=== PATIENT | female | born 1965 | race Caucasian/White ===

== ENCOUNTER 2018-01-11 20:51 | Emergency (ER) | payer MEDICAID ==
[2018-01-11] MEDS ORDERED: LABETALOL HCL 20MG INJ IV (21:30)
[2018-01-11 21:37] LABS: ADD MAN DIFF? NO
[2018-01-11 21:40] LABS: WHITE BLOOD COUNT 6.2 10^3/ul (4.8-10.8)
[2018-01-11 21:40] LABS: BASOPHILS % 0.3 % (0.0-2.0); EOSINOPHILS % 0.2 % (0.0-7.0); HEMATOCRIT 37.1 % (37.0-47.0); HEMOGLOBIN 11.8 g/dl (12.0-16.0); LYMPHOCYTES # 1.1 10^3/ul (0.8-2.9); LYMPHOCYTES % 16.9 % (15.0-51.0); MEAN CORPUSCULAR HEMOGLOBIN 23.2 pg (29.0-33.0); MEAN CORPUSCULAR HGB CONC 31.8 g/dl (32.0-37.0); MEAN PLATELET VOLUME 10.1 fl (7.4-10.4); MONOCYTE # 0.4 10^3/ul (0.3-0.9); NEUTROPHIL # 4.7 10^3/ul (1.6-7.5); NEUTROPHILS % 76.4 % (39.0-77.0); PLATELET COUNT 240 10^3/UL (140-415); RED BLOOD COUNT 5.08 10^6/ul (4.20-5.40); RED CELL DISTRIBUTION WIDTH 18.3 % (11.5-14.5)
[2018-01-11] MEDS: SOD CHLORIDE 0.9% 500 ML IV (21:49)
[2018-01-11] MEDS: LABETALOL HCL 20MG INJ IV (21:49)
[2018-01-11] MEDS: METOCLOPRAMIDE 10 MG INJ IV (22:09)
[2018-01-11 22:12] LABS: ANION GAP 17 (8-16); BLOOD UREA NITROGEN 12 mg/dl (7-20); CALCIUM 9.3 mg/dl (8.4-10.2); CARBON DIOXIDE 26 mmol/L (21-31); CHLORIDE 98 mmol/L (97-110); CREATININE 0.53 mg/dl (0.44-1.00); GLUCOSE 359 mg/dl (70-220); POTASSIUM 3.9 mmol/L (3.5-5.1); SODIUM 137 mmol/L (135-144)
[2018-01-11] MEDS: DIPHENHYDRAMINE 50 MG INJ IV (22:12)
[2018-01-11 22:20] LABS: B-TYPE NATRIURETIC PEPTIDE 64 PG/ML (0-125)
[2018-01-11 22:33] LABS: TROPONIN-I < 0.012 ng/ml (0.00-0.12)
[2018-01-11] MEDS: NICARDipine HCL 30 MG CAPSULE PO (22:49)
[2018-01-11] MEDS: AMLODIPINE 10 MG TAB PO (23:07)
[2018-01-11 23:12] LABS: URINE BLOOD (Dip) POC 3+ (NEGATIVE); URINE KETONES (Dip) POC Negative (NEGATIVE); URINE LEUKOCYTE EST (Dip) POC Negative (NEGATIVE); URINE NITRITE (Dip) POC Negative (NEGATIVE); URINE TOTAL PROTEIN POC 2+ (NEGATIVE)
== END 2018-01-12 02:17 | disposition home or self-care (01) ==
LOC: E/R 01-12 02:17
DX: E11.65 Type 2 diabetes mellitus with hyperglycemia (principal); I16.9 Hypertensive crisis, unspecified; Z79.4 Long term (current) use of insulin; Z79.82 Long term (current) use of aspirin
CPT/HCPCS: 36415; 70450; 80048; 81003; 83880; 84484; 85025; 93005; 96374; 96375; 99291-25

== ENCOUNTER 2018-07-25 22:24 | Inpatient (IN) | payer MEDICAID ==
[2018-07-25 23:05] LABS: ADD MAN DIFF? NO
[2018-07-25] MEDS: SODIUM CHLORIDE 0.9% 1L BAG IV* (23:12)
[2018-07-25 23:13] LABS: WHITE BLOOD COUNT 16.3 10^3/ul (4.8-10.8)
[2018-07-25 23:13] LABS: ABNORMAL IP MESSAGE 1; BASOPHILS % 0.1 % (0.0-2.0); HEMATOCRIT 36.5 % (37.0-47.0); HEMOGLOBIN 11.9 g/dl (12.0-16.0); LYMPHOCYTES # 1.1 10^3/ul (0.8-2.9); LYMPHOCYTES % 6.6 % (15.0-51.0); MEAN CORPUSCULAR HGB CONC 32.6 g/dl (32.0-37.0); MEAN CORPUSCULAR VOLUME 79.9 fl (82.0-101.0); MEAN PLATELET VOLUME 10.1 fl (7.4-10.4); MONOCYTE # 1.8 10^3/ul (0.3-0.9); MONOCYTES % 10.8 % (0.0-11.0); NEUTROPHIL # 13.3 10^3/ul (1.6-7.5); NEUTROPHILS % 81.6 % (39.0-77.0); PLATELET COUNT 246 10^3/UL (140-415); RED BLOOD COUNT 4.57 10^6/ul (4.20-5.40)
[2018-07-25] MEDS: CEFEPIME 2GM/50 ML (PMX) 50 ML IVPB (23:14)
[2018-07-25] MEDS: ONDANSETRON 4 MG INJ IV (23:14)
[2018-07-25 23:16] LABS: POSITIVE DIFF @See below
[2018-07-25 23:17] LABS: ADD UMIC YES; UR ASCORBIC ACID NEGATIVE (NEGATIVE); UR BILIRUBIN (Dip) NEGATIVE (NEGATIVE); UR BLOOD (Dip) 2+ mg/dL (NEGATIVE); UR CLARITY SLIGHTLY CLOUDY (CLEAR); UR COLOR YELLOW (YELLOW); UR GLUCOSE (Dip) 3+ mg/dL (NEGATIVE); UR KETONES (Dip) NEGATIVE (NEGATIVE); UR LEUKOCYTE ESTERASE (Dip) 1+ Leu/ul (NEGATIVE); UR NITRITE (Dip) NEGATIVE (NEGATIVE); UR RBC 47 /HPF (0-5); UR SPECIFIC GRAVITY (Dip) 1.025 (1.003-1.030); UR SQUAMOUS EPITHELIAL CELL FEW /HPF (FEW); UR TOTAL PROTEIN (Dip) 2+ mg/dl (NEGATIVE); UR UROBILINOGEN (Dip) NEGATIVE (NEGATIVE); UR WBC 47 /HPF (0-5)
[2018-07-25] MEDS: DIPHENHYDRAMINE 50 MG INJ IV (23:25)
[2018-07-25] MEDS: METOCLOPRAMIDE 10 MG INJ IV (23:25)
[2018-07-25] MEDS: morphine 4 MG/ML VIAL IV (23:25)
[2018-07-25 23:29] LABS: ALANINE AMINOTRANSFERASE 13 IU/L (13-69); ALBUMIN 4.2 g/dl (3.3-4.9); ALBUMIN/GLOBULIN RATIO 0.85; ALKALINE PHOSPHATASE 124 IU/L (42-121); ANION GAP 13 (8-16); ASPARTATE AMINO TRANSFERASE 22 IU/L (15-46); BILIRUBIN,INDIRECT 0.4 mg/dl (0-1.1); BILIRUBIN,TOTAL 0.4 mg/dl (0.2-1.3); BLOOD UREA NITROGEN 10 mg/dl (7-20); CALCIUM 9.5 mg/dl (8.4-10.2); CARBON DIOXIDE 27 mmol/L (21-31); CHLORIDE 98 mmol/L (97-110); CREATININE 0.54 mg/dl (0.44-1.00); GLUCOSE 357 mg/dl (70-220); POTASSIUM 3.9 mmol/L (3.5-5.1); SODIUM 134 mmol/L (135-144); TOTAL PROTEIN 9.1 g/dl (6.1-8.1)
[2018-07-25 23:32] LABS: INR 1.16; PT RATIO 1.2
[2018-07-25 23:33] LABS: LACTIC ACID 2.5 mmol/L (0.5-2.0)
[2018-07-25 23:33] LABS: PARTIAL THROMBOPLASTIN TIME 33.3 Sec (23.0-35.0)
[2018-07-25 23:40] LABS: TROPONIN-I < 0.012 ng/ml (0.000-0.120)
[2018-07-26] MEDS: ACETAMINOPHEN 325 MG TAB PO (00:05)
[2018-07-26] MEDS: KETOROLAC 30 MG INJ IV (00:53)
[2018-07-26] MEDS ORDERED: GLUCOSE GEL 15 GRAM TUBE PO ×2 (01:15)
[2018-07-26] MEDS ORDERED: DEXTROSE 50% 50 ML SYRINGE IV ×2 (01:15)
[2018-07-26] MEDS ORDERED: GLUCOSE GEL 15 GRAM TUBE BUCCAL (01:15)
[2018-07-26] MEDS ORDERED: GLUCAGON 1 MG INJ IM (01:15)
[2018-07-26] MEDS: INSULIN REGULAR, HUMAN 100 UNIT/1 ML 3ML VIAL IV (01:22)
[2018-07-26 01:59] LABS: LACTIC ACID 0.7 mmol/L (0.5-2.0)
[2018-07-26] MEDS: INSULIN ASPART [NOVOLOG] 3 ML PEN SC ×7 (02:01→20:47)
[2018-07-26] MEDS: ACCU-CHEK XX (02:01)
[2018-07-26 04:06] LABS: ADD MAN DIFF? NO
[2018-07-26 04:09] LABS: ABNORMAL IP MESSAGE 1; BASOPHILS % 0.2 % (0.0-2.0); EOSINOPHILS % 0.1 % (0.0-7.0); HEMATOCRIT 31.1 % (37.0-47.0); HEMOGLOBIN 9.8 g/dl (12.0-16.0); LYMPHOCYTES % 13.2 % (15.0-51.0); MEAN CORPUSCULAR HEMOGLOBIN 25.5 pg (29.0-33.0); MEAN CORPUSCULAR HGB CONC 31.5 g/dl (32.0-37.0); MEAN PLATELET VOLUME 10.4 fl (7.4-10.4); MONOCYTE # 1.7 10^3/ul (0.3-0.9); NEUTROPHIL # 11.3 10^3/ul (1.6-7.5); NEUTROPHILS % 74.9 % (39.0-77.0); PLATELET COUNT 211 10^3/UL (140-415); RED BLOOD COUNT 3.84 10^6/ul (4.20-5.40); RED CELL DISTRIBUTION WIDTH 14.1 % (11.5-14.5)
[2018-07-26 04:14] LABS: POSITIVE DIFF @See below
[2018-07-26 04:20] LABS: HEMOGLOBIN A1C 10.8 % (0-5.9)
[2018-07-26 04:27] LABS: LACTIC ACID 0.8 mmol/L (0.5-2.0)
[2018-07-26 04:27] LABS: ALANINE AMINOTRANSFERASE 13 IU/L (13-69); ALBUMIN 3.2 g/dl (3.3-4.9); ALBUMIN/GLOBULIN RATIO 0.84; ALKALINE PHOSPHATASE 90 IU/L (42-121); ANION GAP 10 (8-16); ASPARTATE AMINO TRANSFERASE 18 IU/L (15-46); BILIRUBIN,INDIRECT 0.4 mg/dl (0-1.1); BILIRUBIN,TOTAL 0.4 mg/dl (0.2-1.3); BLOOD UREA NITROGEN 10 mg/dl (7-20); CARBON DIOXIDE 24 mmol/L (21-31); CHLORIDE 106 mmol/L (97-110); CREATININE 0.49 mg/dl (0.44-1.00); GLUCOSE 288 mg/dl (70-220); MAGNESIUM 1.5 mg/dl (1.7-2.5); POTASSIUM 3.9 mmol/L (3.5-5.1); SODIUM 136 mmol/L (135-144)
[2018-07-26] MEDS: CEFEPIME 1GM/50 ML (PMX) 50 ML IVPB ×2 (08:58→20:40)
[2018-07-26] MEDS: BACLOFEN 10 MG TAB PO ×2 (08:59→20:42)
[2018-07-26] MEDS: ASPIRIN 81 MG TAB PO (08:59)
[2018-07-26] MEDS: MAGNESIUM OXIDE 400 MG TAB PO (08:59)
[2018-07-26] MEDS: INSULIN GLARGINE [LANTus] (100 UNITS/ML) SYG SC ×2 (09:11→20:48)
[2018-07-26] MEDS: ACET/BUTAL/CAFF TAB PO ×2 (17:48→22:19)
[2018-07-26] MEDS: ATORVASTATIN 20 MG TAB PO (20:42)
[2018-07-27] MEDS: ACCU-CHEK XX (02:18)
[2018-07-27 05:45] LABS: ADD MAN DIFF? NO
[2018-07-27 05:49] LABS: WHITE BLOOD COUNT 10.1 10^3/ul (4.8-10.8)
[2018-07-27 05:49] LABS: BASOPHILS % 0.3 % (0.0-2.0); EOSINOPHILS % 0.3 % (0.0-7.0); HEMATOCRIT 32.6 % (37.0-47.0); HEMOGLOBIN 10.4 g/dl (12.0-16.0); LYMPHOCYTES # 2.1 10^3/ul (0.8-2.9); LYMPHOCYTES % 20.4 % (15.0-51.0); MEAN CORPUSCULAR HEMOGLOBIN 25.8 pg (29.0-33.0); MEAN CORPUSCULAR HGB CONC 31.9 g/dl (32.0-37.0); MEAN CORPUSCULAR VOLUME 80.9 fl (82.0-101.0); MEAN PLATELET VOLUME 10.5 fl (7.4-10.4); MONOCYTE # 1.2 10^3/ul (0.3-0.9); MONOCYTES % 11.9 % (0.0-11.0); NEUTROPHIL # 6.7 10^3/ul (1.6-7.5); NEUTROPHILS % 66.8 % (39.0-77.0); PLATELET COUNT 212 10^3/UL (140-415); RED BLOOD COUNT 4.03 10^6/ul (4.20-5.40); RED CELL DISTRIBUTION WIDTH 14.2 % (11.5-14.5)
[2018-07-27 06:16] LABS: IRON 21 ug/dl (35-150)
[2018-07-27 06:25] LABS: % IRON SATURATION 8 % SAT (22-52); TOTAL IRON BINDING CAPACITY 280 ug/dl (241-421)
[2018-07-27 06:26] LABS: ALANINE AMINOTRANSFERASE 17 IU/L (13-69); ALBUMIN/GLOBULIN RATIO 0.73; ALKALINE PHOSPHATASE 97 IU/L (42-121); ANION GAP 12 (8-16); ASPARTATE AMINO TRANSFERASE 20 IU/L (15-46); BILIRUBIN,INDIRECT 0.4 mg/dl (0-1.1); BILIRUBIN,TOTAL 0.4 mg/dl (0.2-1.3); BLOOD UREA NITROGEN 8 mg/dl (7-20); CALCIUM 8.9 mg/dl (8.4-10.2); CARBON DIOXIDE 28 mmol/L (21-31); CHLORIDE 103 mmol/L (97-110); CREATININE 0.53 mg/dl (0.44-1.00); GLUCOSE 194 mg/dl (70-220); POTASSIUM 3.8 mmol/L (3.5-5.1); SODIUM 139 mmol/L (135-144); TOTAL PROTEIN 7.1 g/dl (6.1-8.1)
[2018-07-27 07:15] LABS: FERRITIN 43.3 ng/ml (11.1-264.0)
[2018-07-27] MEDS: INSULIN ASPART [NOVOLOG] 3 ML PEN SC ×7 (08:29→20:23)
[2018-07-27] MEDS: INSULIN GLARGINE [LANTus] (100 UNITS/ML) SYG SC ×2 (08:31→20:24)
[2018-07-27] MEDS: CEFEPIME 1GM/50 ML (PMX) 50 ML IVPB ×2 (08:33→20:20)
[2018-07-27] MEDS: ASPIRIN 81 MG TAB PO (08:40)
[2018-07-27] MEDS: MAGNESIUM OXIDE 400 MG TAB PO (08:40)
[2018-07-27] MEDS: ACET/BUTAL/CAFF TAB PO ×2 (08:41→22:15)
[2018-07-27] MEDS: BACLOFEN 10 MG TAB PO ×2 (08:42→20:18)
[2018-07-27] MEDS: DOCUSATE SODIUM 100 MG CAP PO ×2 (12:42→20:18)
[2018-07-27] MEDS: ATORVASTATIN 20 MG TAB PO (20:18)
[2018-07-28] MEDS: ACCU-CHEK XX (01:47)
[2018-07-28] MEDS: ACET/BUTAL/CAFF TAB PO (05:38)
[2018-07-28 05:51] LABS: ADD MAN DIFF? NO
[2018-07-28 05:54] LABS: BASOPHILS % 0.4 % (0.0-2.0); EOSINOPHILS # 0.1 10^3/ul (0.0-0.5); HEMATOCRIT 34.3 % (37.0-47.0); HEMOGLOBIN 11.1 g/dl (12.0-16.0); LYMPHOCYTES # 1.9 10^3/ul (0.8-2.9); LYMPHOCYTES % 26.8 % (15.0-51.0); MEAN CORPUSCULAR HEMOGLOBIN 26.2 pg (29.0-33.0); MEAN CORPUSCULAR HGB CONC 32.4 g/dl (32.0-37.0); MEAN CORPUSCULAR VOLUME 80.9 fl (82.0-101.0); MEAN PLATELET VOLUME 9.5 fl (7.4-10.4); MONOCYTE # 0.7 10^3/ul (0.3-0.9); MONOCYTES % 9.3 % (0.0-11.0); NEUTROPHIL # 4.3 10^3/ul (1.6-7.5); NEUTROPHILS % 61.2 % (39.0-77.0); PLATELET COUNT 256 10^3/UL (140-415); RED BLOOD COUNT 4.24 10^6/ul (4.20-5.40); RED CELL DISTRIBUTION WIDTH 13.9 % (11.5-14.5)
[2018-07-28 06:15] LABS: WHITE BLOOD COUNT 7.1 10^3/ul (4.8-10.8)
[2018-07-28 06:19] LABS: ALANINE AMINOTRANSFERASE 20 IU/L (13-69); ALBUMIN 3.3 g/dl (3.3-4.9); ALBUMIN/GLOBULIN RATIO 0.71; ALKALINE PHOSPHATASE 91 IU/L (42-121); ANION GAP 11 (8-16); ASPARTATE AMINO TRANSFERASE 27 IU/L (15-46); BILIRUBIN,INDIRECT 0.3 mg/dl (0-1.1); BILIRUBIN,TOTAL 0.3 mg/dl (0.2-1.3); BLOOD UREA NITROGEN 9 mg/dl (7-20); CARBON DIOXIDE 30 mmol/L (21-31); CHLORIDE 103 mmol/L (97-110); CREATININE 0.58 mg/dl (0.44-1.00); GLUCOSE 108 mg/dl (70-220); MAGNESIUM 1.9 mg/dl (1.7-2.5); POTASSIUM 3.4 mmol/L (3.5-5.1); SODIUM 141 mmol/L (135-144); TOTAL PROTEIN 7.9 g/dl (6.1-8.1)
[2018-07-28] MEDS: INSULIN ASPART [NOVOLOG] 3 ML PEN SC ×7 (08:00→20:54)
[2018-07-28] MEDS: INSULIN GLARGINE [LANTus] (100 UNITS/ML) SYG SC ×2 (08:13→20:57)
[2018-07-28] MEDS: ASPIRIN 81 MG TAB PO (08:14)
[2018-07-28] MEDS: CEFEPIME 1GM/50 ML (PMX) 50 ML IVPB (08:14)
[2018-07-28] MEDS: BACLOFEN 10 MG TAB PO ×2 (08:14→20:54)
[2018-07-28] MEDS: DOCUSATE SODIUM 100 MG CAP PO ×2 (08:14→20:54)
[2018-07-28] MEDS: MAGNESIUM OXIDE 400 MG TAB PO (08:14)
[2018-07-28] MEDS: METHYLPREDNISOLONE 125 MG INJ IV (08:35)
[2018-07-28 10:14] LABS: ERYTHROCYTE SEDIMENTATION RATE 114 mm/Hr (0-30)
[2018-07-28] MEDS: LEVOFLOXACIN 750MG/D5W (PMX) 150 ML IVPB (11:04)
[2018-07-28] MEDS ORDERED: HYDROCODONE/APAP (5/325) TAB PO (11:30)
[2018-07-28] MEDS: POTASSIUM CHLORIDE 20 MEQ POWDER FOR ORAL SOLN PO (15:54)
[2018-07-28] MEDS: ATORVASTATIN 20 MG TAB PO (20:54)
[2018-07-29] MEDS: ACCU-CHEK XX (01:39)
[2018-07-29 05:09] LABS: ADD MAN DIFF? NO
[2018-07-29 05:19] LABS: BASOPHILS % 0.3 % (0.0-2.0); EOSINOPHILS # 0.1 10^3/ul (0.0-0.5); EOSINOPHILS % 1.2 % (0.0-7.0); HEMATOCRIT 31.3 % (37.0-47.0); HEMOGLOBIN 10.2 g/dl (12.0-16.0); LYMPHOCYTES # 2.5 10^3/ul (0.8-2.9); LYMPHOCYTES % 37.6 % (15.0-51.0); MEAN CORPUSCULAR HEMOGLOBIN 26.1 pg (29.0-33.0); MEAN CORPUSCULAR HGB CONC 32.6 g/dl (32.0-37.0); MEAN CORPUSCULAR VOLUME 80.1 fl (82.0-101.0); MEAN PLATELET VOLUME 9.8 fl (7.4-10.4); MONOCYTE # 0.5 10^3/ul (0.3-0.9); MONOCYTES % 7.4 % (0.0-11.0); NEUTROPHIL # 3.6 10^3/ul (1.6-7.5); NEUTROPHILS % 53.1 % (39.0-77.0); PLATELET COUNT 273 10^3/UL (140-415); RED BLOOD COUNT 3.91 10^6/ul (4.20-5.40); RED CELL DISTRIBUTION WIDTH 13.9 % (11.5-14.5)
[2018-07-29 05:19] LABS: WHITE BLOOD COUNT 6.8 10^3/ul (4.8-10.8)
[2018-07-29 05:57] LABS: ALANINE AMINOTRANSFERASE 21 IU/L (13-69); ALBUMIN/GLOBULIN RATIO 0.69; ALKALINE PHOSPHATASE 84 IU/L (42-121); ANION GAP 8 (8-16); ASPARTATE AMINO TRANSFERASE 37 IU/L (15-46); BILIRUBIN,INDIRECT 0.2 mg/dl (0-1.1); BILIRUBIN,TOTAL 0.2 mg/dl (0.2-1.3); BLOOD UREA NITROGEN 11 mg/dl (7-20); CALCIUM 9.2 mg/dl (8.4-10.2); CARBON DIOXIDE 30 mmol/L (21-31); CHLORIDE 105 mmol/L (97-110); CREATININE 0.58 mg/dl (0.44-1.00); GLUCOSE 108 mg/dl (70-220); POTASSIUM 3.7 mmol/L (3.5-5.1); SODIUM 139 mmol/L (135-144); TOTAL PROTEIN 7.3 g/dl (6.1-8.1)
[2018-07-29] MEDS: INSULIN ASPART [NOVOLOG] 3 ML PEN SC ×4 (08:00→13:32)
[2018-07-29] MEDS: MAGNESIUM OXIDE 400 MG TAB PO (08:09)
[2018-07-29] MEDS: ASPIRIN 81 MG TAB PO (08:09)
[2018-07-29] MEDS: DOCUSATE SODIUM 100 MG CAP PO (08:09)
[2018-07-29] MEDS: INSULIN GLARGINE [LANTus] (100 UNITS/ML) SYG SC (08:13)
[2018-07-29] MEDS: BACLOFEN 10 MG TAB PO (08:14)
[2018-07-29] MEDS: LEVOFLOXACIN 750MG/D5W (PMX) 150 ML IVPB (09:51)
[2018-07-29] MEDS: LACTULOSE 30ML CUP PO (13:03)
[2018-07-29 13:37] LABS: CREATININE, RANDOM URINE 20 mg/dL (20-275); MICROALBUMIN 1.6 mg/dL; MICROALBUMIN/CREATININE RATIO 80 (<30)
[2018-07-29] MEDS: ACETAMINOPHEN 325 MG TAB PO (15:33)
[2018-07-29] MEDS ORDERED: metroNIDAZOLE 500 MG TAB PO (21:00)
[2018-07-30] MEDS ORDERED: LEVOFLOXACIN 750 MG TABLET PO (06:00)
== END 2018-07-29 17:45 | disposition home or self-care (01) | DRG 872 ==
LOC: 2NE 07-27 08:41 → E/R 22:24 → 2NE 07-26 00:43
DX: A41.9 Sepsis, unspecified organism (principal); N39.0 Urinary tract infection, site not specified; R65.20 Severe sepsis without septic shock; E11.65 Type 2 diabetes mellitus with hyperglycemia; I10 Essential (primary) hypertension; D50.9 Iron deficiency anemia, unspecified; E78.5 Hyperlipidemia, unspecified; R70.0 Elevated erythrocyte sedimentation rate; R51 Headache; Z79.4 Long term (current) use of insulin
CPT/HCPCS: 36415; 71045; 80053; 81001; 82043; 82728; 82962; 83036; 83540; 83605; 83735; 84443; 84484; 85025; 85610; 85651; 85730; 86140; 87040; 87086; 87400; 93005; 96374; 96375; 99291-25

== ENCOUNTER 2019-01-03 13:24 | Emergency (ER) | payer MEDICAID ==
[2019-01-03] MEDS: SILVER SULFADIAZINE 1% 25 GM CR TOP (15:28)
== END 2019-01-03 16:06 | disposition home or self-care (01) ==
LOC: E/R 13:24
DX: T21.22XA Burn of second degree of abdominal wall, initial encounter (principal); I10 Essential (primary) hypertension; E11.9 Type 2 diabetes mellitus without complications; X11.8XXA Contact with other hot tap-water, initial encounter; Y92.9 Unspecified place or not applicable; Z79.4 Long term (current) use of insulin; Z79.82 Long term (current) use of aspirin
CPT/HCPCS: 16000; 99283-25